=== PATIENT | male | born 1955 | race Caucasian/White ===

== ENCOUNTER → 2018-06-05 | Outpatient (CLI) | payer BC ==
[~2018-06-05] MED LIST: GADOBUTROL 10 ML VIAL IVP ONE
== END ==
LOC: FIMAGING 10:35
PROVIDERS: ATTEND Otolaryngology
DX: R22.1 Localized swelling, mass and lump, neck (principal); E04.1 Nontoxic single thyroid nodule
CPT/HCPCS: A9585

== ENCOUNTER 2018-08-06 05:38 | Day surgery (SDC) | payer BC | END 2018-08-06 12:00 | disposition home or self-care (01) | LOC: F3E 05:38 → FSGY 05:38 ==